=== PATIENT | female | born 1970 | race Caucasian/White ===

== ENCOUNTER 2016-06-27 21:57 | Emergency (ER) | payer OTHER ==
[2016-06-27 22:53] LABS: APPEARANCE,URINE CLEAR; BILIRUBIN,URINE NEGATIVE (NEGATIVE); GLUCOSE, URINE NEGATIVE (NEGATIVE); KETONES,URINE NEGATIVE (NEGATIVE); LEUKOCYTE ESTERASE,URINE NEGATIVE (NEGATIVE); NITRITE,URINE POSITIVE (NEGATIVE); PROTEIN,URINE 30 mg/dL (NEGATIVE); URINE SPECIFIC GRAVITY 1.003
--- NOTE | 2016-06-28 01:41 | ER Document Report ---
ED GI/ - General Chief Complaint: Urinary Problem Stated Complaint: URINARY SYMPTOMS Time seen by provider: 01:41 Mode of Arrival: Ambulatory Information source: Patient TRAVEL OUTSIDE OF THE [place] IN LAST 30 DAYS: No - HPI Patient complains to provider of: Dysuria Onset: Other - 3 days Timing/Duration: Gradual, Persistent Quality of pain: Burning Severity at maximum: Moderate Severity in ED: Moderate Pain Level: 3 Location: Suprapubic Associated symptoms: Dysuria, Urinary frequency Exacerbated by: Denies Relieved by: Denies Similar symptoms previously: Yes Recently seen / treated by doctor: No Notes: 06/28/16 05:31 Patient is a 46-year-old female who presents to the emergency room complaining of dysuria with urinary frequency, nausea and chills this been going on over the past 2-3 days, she has been taking Azo at home with minimal relief, denies any fevers, no vomiting or diarrhea - Related Data Allergies/Adverse Reactions: No Known Allergies Allergy (Unverified 06/27/16 22:29) Past Medical History - General Information source: Patient - Social History Smoking Status: Current Every Day Smoker Family History: Reviewed & Not Pertinent Patient has suicidal ideation: No Patient has homicidal ideation: No Renal/ Medical History: Denies: Hx Peritoneal Dialysis Review of Systems - Review of Systems Constitutional: No symptoms reported EENT: No symptoms reported Cardiovascular: No symptoms reported Respiratory: No symptoms reported Gastrointestinal: No symptoms reported Genitourinary: See HPI Female Genitourinary: No symptoms reported Musculoskeletal: No symptoms reported Skin: No symptoms reported Hematologic/Lymphatic: No symptoms reported Neurological/Psychological: No symptoms reported -: Yes All other systems reviewed and negative Physical Exam - Vital signs Vitals: Temp Pulse Resp BP Pulse Ox 98.3 F 103 H 18 123/88 H 97 06/27/16 22:23 06/27/16 22:23 06/27/16 22:23 06/27/16 22:23 06/27/16 22:23 Interpretation: Normal - General General appearance: Appears well, Alert - HEENT Head: Normocephalic, Atraumatic Eyes: Normal Pupils: PERRL - Respiratory Respiratory status: No respiratory distress Chest status: Nontender Breath sounds: Normal Chest palpation: Normal - Cardiovascular Rhythm: Regular Heart sounds: Normal auscultation Murmur: No - Abdominal Inspection: Normal Distension: No distension Bowel sounds: Normal Tenderness: Nontender Organomegaly: No organomegaly - Back Back: Normal, Nontender - Extremities General upper extremity: Normal inspection, Nontender, Normal color, Normal ROM , Normal temperature General lower extremity: Normal inspection, Nontender, Normal color, Normal ROM , Normal temperature, Normal weight bearing. No: Mary Lou's sign - Neurological Neuro grossly intact: Yes Cognition: Normal Orientation: AAOx4 Star Coma Scale Eye Opening: Spontaneous Star Coma Scale Verbal: Oriented Star Coma Scale Motor: Obeys Commands Layla Coma Scale Total: 15 Speech: Normal Motor strength normal: LUE, RUE, LLE, RLE Sensory: Normal - Psychological Associated symptoms: Normal affect, Normal mood - Skin Skin Temperature: Warm Skin Moisture: Dry Skin Color: Normal Course - Re-evaluation Re-evalutation: 06/28/16 05:32 Patient symptoms are consistent with urinary tract infection, urinalysis confirms this, she was started on antibiotics and provided with information for follow-up, advised to return if symptoms worsen, patient acknowledges understanding and agreement with this plan - Vital Signs Vital signs: Temp Pulse Resp BP Pulse Ox 98.0 F 64 16 130/74 H 97 06/28/16 01:53 06/28/16 01:53 06/28/16 01:53 06/28/16 01:53 06/28/16 01:53 - Laboratory Laboratory results interpreted by me: 06/27/16 22:25 Urine Protein 30 H Urine Blood LARGE H Urine Nitrite POSITIVE H Urine Urobilinogen 4.0 H Discharge - Discharge Clinical Impression: Urinary tract infection Qualifiers: Urinary tract infection type: site unspecified Hematuria presence: without hematuria Qualified Code(s): N39.0 - Urinary tract infection, site not specified Condition: Stable Disposition: HOME, SELF-CARE Instructions: Urinary Tract Infection ([facility]) Additional Instructions: Follow up with your primary care provider in one to 2 days. Return to the emergency room immediately if symptoms worsen or any additional concerns. Prescriptions: Cephalexin Monohydrate [Keflex 500 mg Capsule] 500 mg PO BID #20 capsule Phenazopyridine HCl [Pyridium 200 mg Tablet] 200 mg PO TID #15 tablet
[2016-06-28 01:56] VITALS: BP 130/74
[2016-06-28] MEDS ORDERED: PHENAZOPYRIDINE HCL 200 MG TABLET PO ONE (02:03)
[2016-06-28] MEDS ORDERED: CEPHALEXIN 500 MG CAPSULE PO ONE (02:03)
== END 2016-06-28 02:23 | disposition home or self-care (01) ==
LOC: ER 21:57
DX: N39.0 Urinary tract infection, site not specified (principal); R30.0 Dysuria; R35.0 Frequency of micturition; R11.0 Nausea; R68.83 Chills (without fever); F17.200 Nicotine dependence, unspecified, uncomplicated
CPT/HCPCS: 99283; 81001; J3490

== ENCOUNTER 2017-03-26 18:32 | Emergency (ER) | payer OTHER ==
[2017-03-26] MEDS ORDERED: ONDANSETRON 4 MG TAB.RAPDIS PO ONE (20:19)
--- NOTE | 2017-03-26 20:24 | ER Document Report ---
ED General - General Mode of Arrival: Ambulatory Information source: Patient TRAVEL OUTSIDE OF THE [place] IN LAST 30 DAYS: No - General Chief Complaint: Nausea/Vomiting Stated Complaint: VOMITING Time Seen by Provider: 03/26/17 20:08 Notes: Patient is a 46 year old female presenting to the emergency department complaining of nausea and vomiting onset around 1400 today. Patient states she suddenly felt nauseous at work and vomited twice at work and once in the emergency department. Patient also complains of lightheadedness. Patient denies dysuria, fevers, sore throat or diarrhea. Patient also denies eating any food that could have caused her symptoms. At bedside patient is playful and smiling. (SERVANDO MONTES) - Related Data Allergies/Adverse Reactions: No Known Allergies Allergy (Unverified 06/27/16 22:29) Past Medical History - General Information source: Patient - Social History Smoking Status: Current Every Day Smoker Chew tobacco use (# tins/day): No Frequency of alcohol use: Occasional Drug Abuse: None Family History: Reviewed & Not Pertinent Patient has suicidal ideation: No Patient has homicidal ideation: No Renal/ Medical History: Reports: Hx Peritoneal Dialysis Past Surgical History: Reports: Hx Section, Hx Gynecologic Surgery - Scope - Immunizations Hx Diphtheria, Pertussis, Tetanus Vaccination: Yes Review of Systems - Review of Systems Constitutional: No symptoms reported EENT: No symptoms reported Cardiovascular: No symptoms reported Respiratory: No symptoms reported Gastrointestinal: See HPI, Abdominal pain, Nausea, Vomiting Genitourinary: No symptoms reported Female Genitourinary: No symptoms reported Musculoskeletal: No symptoms reported Skin: No symptoms reported Hematologic/Lymphatic: No symptoms reported Neurological/Psychological: No symptoms reported -: Yes All other systems reviewed and negative Physical Exam - Vital signs Vitals: Temp Pulse BP Pulse Ox 98.9 F 108 H 115/78 97 03/26/17 19:46 03/26/17 19:46 03/26/17 19:46 03/26/17 19:46 - Notes Notes: GENERAL: Alert, playful and smiling on exam. HEAD: Normocephalic, atraumatic. EYES: Appear normal. Pupils equal, round, and reactive to light. ENT: Moist mucus membranes, tongue midline. NECK: Full range of motion. Supple. Trachea midline. LUNGS: Clear to auscultation bilaterally, no wheezes, rales, or rhonchi. No respiratory distress. HEART: Tachycardic. No murmurs, gallops, or rubs. ABDOMEN: Soft, non-tender. Non-distended. Normal bowel sounds. EXTREMITIES: Moves all 4 extremities spontaneously. NEUROLOGICAL: Alert and oriented x3. Normal speech. PSYCH: Normal affect, normal mood. SKIN: Warm, dry, normal turgor. No rashes or lesions noted. (SERVANDO MONTES) Course - Re-evaluation Re-evalutation: 03/26/17 21:09 Patient symptoms improved with Zofran no vomiting in the emergency department. Will provide Zofran and return precautions regarding any abdominal pain or localized pain return for further evaluation. (SHAUNA NICHOLSON) - Vital Signs Vital signs: Temp Pulse Resp BP Pulse Ox 98.9 F 108 H 115/78 97 03/26/17 19:46 03/26/17 19:46 03/26/17 19:46 03/26/17 19:46 Discharge - Discharge Clinical Impression: Nausea & vomiting Qualifiers: Vomiting type: unspecified Vomiting Intractability: unspecified Qualified Code( s): R11.2 - Nausea with vomiting, unspecified Condition: Stable Disposition: HOME, SELF-CARE Instructions: Vomiting ([facility]) Additional Instructions: Return to the emergency department for any worsening pain or concerns or intractable vomiting Prescriptions: Ondansetron [Zofran Odt 4 mg Tablet] 1 tab PO Q4H PRN #15 tab.rapdis PRN Reason: For Nausea/Vomiting
[2017-03-26] MEDS ORDERED: ONDANSETRON ODT 4 MG TAB (6 TAB/ER DISP) PO PRN (21:05)
[2017-03-26 21:19] VITALS: BP 118/78
== END 2017-03-26 21:18 | disposition home or self-care (01) ==
LOC: ER 18:32
DX: R11.2 Nausea with vomiting, unspecified (principal); R10.9 Unspecified abdominal pain; R00.0 Tachycardia, unspecified; F17.200 Nicotine dependence, unspecified, uncomplicated
CPT/HCPCS: 99283; S0119